=== PATIENT | female | born 1965 | race Caucasian/White ===

== ENCOUNTER 2022-12-07 16:00 | Outpatient (CLI) | payer OTHER, SELFPAY ==
--- NOTE | ~2022-12-07 | MM_ITS ---
EXAMINATION: MM screening ronaldo BI w yanique HISTORY: Screening mammogram TECHNIQUE: Craniocaudal and mediolateral oblique 3-D tomosynthesis images were obtained and synthetic 2-D images were generated. CAD analysis was submitted and interpreted. COMPARISON: 10/11/2018, 12/09/2015 bilateral screening mammogram examinations........ BREAST PARENCHYMAL COMPOSITION: There are scattered areas of fibroglandular density. FINDINGS: There is no evidence of suspicious mass, calcification, or architectural distortion to sugg est malignancy in either breast. There has been no suspicious interval change. IMPRESSION: 1. No mammographic evidence of malignancy. 2. Recommend routine screening mammography in one year. BI-RADS Category 1: Negative Reviewed, dictated and finalized at location A.
== END 2022-12-07 16:01 | disposition home or self-care (01) ==
LOC: ANHIMG 16:02
PROVIDERS: PCP Family Medicine; Visit Provider Emergency Medicine
DX: Z12.31 Encounter for screening mammogram for malignant neoplasm of breast (principal)
CPT/HCPCS: 77063; 77067

== ENCOUNTER 2023-03-09 08:29 | Outpatient (CLI) | payer OTHER, SELFPAY ==
--- NOTE | 2023-03-20 14:29 | WPDHOMESLEEP ---
Sleep Study - Home Unattended Date of Study: 03/09/23 Ordering Provider: Naty Stone MD Interpreting Provider: Tess eNlson, DO Home Sleep Study Type: Watch PAT Height: 1.73 m Weight: 104.326 kg Body Mass Index: 34.9 Neck Circumference (inches): 14.5 [place]: 5 Reason for Sleep Study Unrefreshing sleep Sleep History The patient is a 57-year-old female with depression, OCD, arthritis, GERD, anxiety, hypothyroidism and history of tobacco use that had a sleep study ordered by her primary care for evaluation of sleep apnea. The patient denies awakening from sleep short of breath. She frequently awakens at night with heartburn, belching or cough. She frequently snores and is occasionally loud enough that others complain. She occasionally has trouble sleeping when she has a cold. She denies waking up gasping for air throughout the night. She denies having breathing problems at night observed by herself or others. She rarely sweats excessively at night. She rarely has heart palpitations or irregular heartbeats during the night. She rarely falls asleep during the day but never while driving. She denies sleep paralysis and cataplexy. She rarely has trouble at school or work due to sleepiness. She rarely experiences vivid dreamlike scenes upon awakening or falling asleep. She denies feeling afraid of going to sleep. She rarely has nightmares. She rarely remembers her dreams. She frequently has thoughts racing through her mind. She rarely feels sad or depressed. She frequently has anxiety. She frequently has muscular tension. She occasionally notices parts of her body jerk. She frequently kicks during the night. She occasionally has crawling and aching feelings in her legs but never has leg pain during the night. She frequently grinds her teeth during sleep but never awakens with morning jaw pain. She is rarely bothered by pain during the day and rarely awakened by pain during the night. She frequently wakes up feeling stiff in the morning. She frequently wakes up with sore or achy muscles. She frequently wakes up with pain in the neck, spine or other joints. She goes to bed between 9-10 p.m. on weekdays and between 10-11 p.m. on the weekends. She can fall asleep immediately. She wakes up 2-3 times throughout the night for unknown reasons. When she awakens, she will have racing thoughts if she is unable to fall back asleep but she can usually fall back asleep within a few minutes. She wakes up at 6:00 a.m. on weekdays and at 7:00 a.m. on the weekends. She typically gets 8-9 hours of sleep per night. She will stay in bed for 30 minutes after waking up in the morning. She denies consuming any caffeinated beverages within 2 hours of bedtime. She denies engaging in physical exercise before bedtime. She will read watch television before falling asleep. She will occasionally take naps in the afternoon or the evening. She will drink coffee in the morning. She will occasionally consume alcoholic beverages. She quit smoking cigarettes 16 years ago. She denies recreational drug use. [facility] Past Medical History Medical History Abnormal findings on esophagogastroduodenoscopy (EGD) 6.6.19: esophageal web, reflux esophagitis,dilated Chronic pain of right knee History of deviated nasal septum History of torn meniscus of left knee Loss of libido Low back pain radiating to lower extremity Major depressive disorder, recurrent episode, mild with anxious 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 Primary osteoarthritis, unspecified hand Right knee DJD Surgical History Surgical History History of endometrial ablation Hx of cholecystectomy Hx of knee surgery Family History Family History Mother Depression Family history of obesity Family hist
[2023-03-20 14:37] VITALS: BMI 34.9
== END 2023-03-10 08:49 | disposition home or self-care (01) ==
LOC: ANHCSM 08:30
PROVIDERS: PCP Family Medicine; Visit Provider Family Medicine
DX: G47.33 Obstructive sleep apnea (adult) (pediatric) (principal)
CPT/HCPCS: 95800

== ENCOUNTER 2023-10-16 01:46 | Day surgery (SDC) | payer OTHER, SELFPAY ==
[2023-09-29 11:50] VITALS: BMI 35.9
--- NOTE | 2023-10-13 09:56 | SUR.PREOP ---
Patient called regarding upcoming procedure. Reviewed preop instructions, appointment times, and procedure prep.
[2023-10-16 09:36] VITALS: BP 161/90; PULSE 70; RESP 20; TEMP 36.2; O2SAT 98; BMI 37.0
[2023-10-16] MEDS: LACTATED RINGERS 1,000 ML 150 ML IV CONT (09:45)
--- NOTE | 2023-10-16 10:18 | WPDANESEPPF ---
Anes - Initial Pre Proc Eval Procedure: Operation Date: 10/16/23 10:30 Proposed Procedures p Esophagogastroduodenoscopy - Marques Beach MD Date/Time: 10/16/23 10:18 Surgeon: Marques Beach MD Pre Op Diagnosis: GERD,Dysphagia,(gaseous) Patient Data Age: 57 Gender: F Height: 1.73 m Weight: 110.6 kg Last Vital Signs Temp 97.1 F L 10/16/23 09:36 Pulse 70 10/16/23 09:36 Resp 20 10/16/23 09:36 BP 161/90 H 10/16/23 09:36 Pulse Ox 98 10/16/23 09:36 O2 Del Method Room Air 10/16/23 09:36 Allergies Allergy/AdvReac Type Severity Reaction Status Date / Time Tetanus Vaccines and Toxoid Allergy Intermediate local Verified 09/29/23 11:52 reaction buproprion Allergy Intermediate manic Uncoded 09/29/23 11:52 lexapro AdvReac Intermediate detached Uncoded 09/29/23 11:52 Home Medications Medication Instructions Recorded Confirmed Type cyclobenzaprine 5 mg tablet 5 mg PO TID PRN muscle spasm #30 11/17/22 09/29/23 Rx tabs levothyroxine 50 mcg tablet See Rx Instructions .Route 01/02/23 09/29/23 Rx .COMPLEX #90 tabs meloxicam 15 mg tablet See Rx Instructions .Route 02/07/23 09/29/23 Rx .COMPLEX #90 tabs cpap #1 ea 03/20/23 09/15/23 Rx fluoxetine 10 mg capsule 20 mg PO DAILY #180 caps 04/11/23 09/29/23 Rx omeprazole 40 mg capsule,delayed 40 mg PO DAILY #30 caps 08/21/23 09/29/23 Rx release sucralfate 1 gram tablet 1 g PO BID PRN gastric reflux #20 08/21/23 09/29/23 Rx tabs One Daily Women's 1 cap PO DAILY 09/29/23 09/29/23 History alprazolam 0.25 mg tablet 0.25 mg PO DAILY PRN Anxiety 09/29/23 09/29/23 History cholecalciferol (vitamin D3) 50 150 mcg PO DAILY 09/29/23 09/29/23 History mcg (2,000 unit) capsule (Vitamin D3) omega-3 fatty acids 1 cap PO DAILY 09/29/23 09/29/23 History Patient hx anesthesia problems: none Family hx anesthesia problems: none Results Review: All pre-operative results and documents have been reviewed as part of the pre-operative evaluation. [facility] Past Medical History Medical History (Updated 09/15/23 @ 11:00 by Lottie Stewart, MIGUEL) Abnormal findings on esophagogastroduodenoscopy (EGD) 6.6.19: esophageal web, reflux esophagitis,dilated Bloating Chronic pain of right knee Dysphagia Esophageal ring History of deviated nasal septum History of torn meniscus of left knee Hyperplastic colon polyp Lactose intolerance Loss of libido Low back pain radiating to lower extremity Major depressive disorder, recurrent episode, mild with anxious 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 Primary osteoarthritis, unspecified hand Right knee DJD Surgical History Surgical History History of endometrial ablation Hx of cholecystectomy Hx of knee surgery Family History Family History Mother Depression Family history of obesity Family history of kidney disease Father Hypertension Acute myocardial infarction Family history of glaucoma Family history of elevated blood lipids Family history of cardiovascular disease Grandparent Diabetes mellitus Family history of obesity Family history of schizophrenia Depression Family history of polycystic kidney disease Social History Social History Smoking packs per day: 1 Smoking cigarettes per day: 20.0 Years smoked: 18 Smoking pack-years: 18.00 Smoking status: Former smoker Tobacco type: cigarettes Alcohol intake: current Substance use: never Substance use type: does not use Lack of Transportation: No Lack of Food: Never True Current Housing: I Have Housing Concerned About Future Housing: No Difficulty Paying Gas/Electric Bills: No Difficulty Paying for Meds: No Currently Unemployed: No Education: Associate Degree Difficulty w/ Childcare or Family Care: N
--- NOTE | 2023-10-16 10:22 | WPDHPUPDATE1 ---
History and Physical Update Update Date/Time: 10/16/23 10:22 History and Physical has been reviewed, including an updated exam of the patient. There are NO changes in the patient's condition. Risks, benefits, and alternatives have been discussed and questions answered. Patient agrees to proceed with procedure.
[2023-10-16 10:41] VITALS: BP 135/80; PULSE 67; RESP 12; O2SAT 98
[2023-10-16 10:51] VITALS: BP 146/77; PULSE 65; RESP 17; O2SAT 98
[2023-10-16 11:01] VITALS: BP 127/77; PULSE 62; RESP 16; O2SAT 98
== END 2023-10-16 11:04 | disposition home or self-care (01) ==
PROVIDERS: PCP Family Medicine; Visit Provider Internal Medicine Gastroenterology
PROC: 0DJ08ZZ Inspection of Upper Intestinal Tract, Via Natural or Artificial Opening Endoscopic (ICD-10-PCS; CPT 43235; principal; 2023-10-16 10:30)
DX: K21.00 Gastro-esophageal reflux disease with esophagitis, without bleeding (principal); K29.50 Unspecified chronic gastritis without bleeding; K44.9 Diaphragmatic hernia without obstruction or gangrene; F41.9 Anxiety disorder, unspecified; E03.9 Hypothyroidism, unspecified; F33.0 Major depressive disorder, recurrent, mild; G47.30 Sleep apnea, unspecified; G89.29 Other chronic pain; M25.561 Pain in right knee; E66.9 Obesity, unspecified; Z68.37 Body mass index [BMI] 37.0-37.9, adult; Z90.49 Acquired absence of other specified parts of digestive tract; Z98.890 Other specified postprocedural states; Z87.891 Personal history of nicotine dependence; Z82.49 Family history of ischemic heart disease and other diseases of the circulatory system
CPT/HCPCS: 43239; 88305; J2704; J7120

== ENCOUNTER 2024-02-04 18:03 | Emergency (ER) | payer OTHER, SELFPAY ==
[2024-02-04 18:31] VITALS: BP 145/76; PULSE 89; RESP 16; TEMP 36.3; O2SAT 97
[2024-02-04] MEDS: LIDOCAINE HCL 1% LOCAL INJ 2 ML AMPUL 5 ML INFILTRATE (18:55)
--- NOTE | 2024-02-04 19:41 | ED.ANIMALBIT ---
HPI - Animal Bite General Chief Complaint: Animal Bite Stated Complaint: lt hand laceration Source: patient Mode of arrival: ambulatory Limitations: no limitations History of Present Illness HPI narrative: Patient presents for evaluation of a dog bite to the 3rd digit of the left hand. She indicates she was at an ice cream shop and an individual's dog bit her when she placed her hands down to greet it. The dog looked healthy. It is unknown whether the dog is up-to-date on vaccinations. Patient's last tetanus was in 2008. She is not diabetic. She is right-hand dominant. She reports 2/10 pain in the 3rd digit left hand at the site of the dog bite. She denies any fever, chills, nausea, vomiting, purulence from the affected area, sensory changes, loss of motor function. Related Data Home Medications Medication Instructions Recorded Confirmed One Daily Women's 1 cap PO DAILY 09/29/23 02/04/24 alprazolam 0.25 mg tablet 0.25 mg PO DAILY PRN Anxiety 09/29/23 02/04/24 cholecalciferol (vitamin D3) 50 150 mcg PO DAILY 09/29/23 02/04/24 mcg (2,000 unit) capsule (Vitamin D3) omega-3 fatty acids 1 cap PO DAILY 09/29/23 02/04/24 Allergies Allergy/AdvReac Type Severity Reaction Status Date / Time Tetanus Vaccines and Toxoid Allergy Intermediate local Verified 02/04/24 18:13 reaction buproprion Allergy Intermediate manic Uncoded 02/04/24 18:13 lexapro AdvReac Intermediate detached Uncoded 02/04/24 18:13 Review of Systems Review of Systems: CONSTITUTIONAL: Denies fever, chills, or sweats. EYES: Denies visual changes, redness, or discharge. ENT: Denies rhinorrhea, congestion, sore throat, or otalgia. CARDIOVASCULAR: Denies chest pain, palpitations, or edema. RESPIRATORY: Denies cough or dyspnea. GASTROINTESTINAL: Denies abdominal pain, nausea, vomiting, or diarrhea. GENITOURINARY: Denies dysuria or hematuria. SKIN: Reports dog bite to 3rd digit of left hand MUSCULOSKELETAL: Reports pain in the third digit of the left hand NEUROLOGIC: Denies headache, numbness, dizziness, or weakness. PSYCHIATRIC: Denies anxiety or depression. [facility] Past Medical History Medical History Abnormal findings on esophagogastroduodenoscopy (EGD) 02.28.19: esophageal web, reflux esophagitis,dilated Bloating Chronic pain of right knee Dysphagia Esophageal ring History of deviated nasal septum History of torn meniscus of left knee Hyperplastic colon polyp Lactose intolerance Loss of libido Low back pain radiating to lower extremity Major depressive disorder, recurrent episode, mild with anxious 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 Primary osteoarthritis, unspecified hand Right knee DJD Surgical History Surgical History History of endometrial ablation Hx of cholecystectomy Hx of knee surgery Family History Family History Mother Depression Family history of obesity Family history of kidney disease Father Hypertension Acute myocardial infarction Family history of glaucoma Family history of elevated blood lipids Family history of cardiovascular disease Grandparent Diabetes mellitus Family history of obesity Family history of schizophrenia Depression Family history of polycystic kidney disease Social History Social History Smoking packs per day: 1 Smoking cigarettes per day: 20.0 Years smoked: 18 Smoking pack-years: 18.00 Smoking status: Former smoker Tobacco type: cigarettes Alcohol intake: current Substance use: never Substance use type: does not use Lack of Transportation: No Lack of Food: Never True Current Housing: I Have Housing Concerned About Future Housing: No Difficulty Paying Gas/Electric Bills: No Difficulty Paying for Meds
[2024-02-04] MEDS: TETANUS,DIPHTHERIA,AC PERTUSSIS ADULT (0.5 ML) BOOSTRIX IM (19:44)
== END 2024-02-04 19:58 | disposition home or self-care (01) ==
PROVIDERS: Emergency Provider Nurse Practitioner; PCP Family Medicine
DX: S61.213A Laceration without foreign body of left middle finger without damage to nail, initial encounter (principal); W54.0XXA Bitten by dog, initial encounter; Z23 Encounter for immunization; Z87.891 Personal history of nicotine dependence; M17.11 Unilateral primary osteoarthritis, right knee
CPT/HCPCS: 12042; 90471; 90715; 99213; G0463

== ENCOUNTER 2024-03-27 05:54 | Day surgery (SDC) | payer OTHER, SELFPAY ==
[2024-02-23 13:31] VITALS: BMI 36.8
[2024-03-27 06:29] VITALS: BP 136/92; PULSE 80; RESP 16; TEMP 36.8; O2SAT 97
[2024-03-27] MEDS: LACTATED RINGERS 1,000 ML 150 ML IV CONT (06:31)
--- NOTE | 2024-03-27 07:06 | WPDANESEPPF ---
Anes - Initial Pre Proc Eval Procedure: Operation Date: 03/27/24 08:00 Proposed Procedures p Diagnostic Colonoscopy - Armando Rhodes MD Date/Time: 03/27/24 07:06 Surgeon: Armando Rhodes MD Pre Op Diagnosis: History of Colon Polyps Patient Data Age: 58 Gender: F Height: 1.73 m Weight: 107.7 kg Last Vital Signs Temp 36.8 C 03/27/24 06:29 Pulse 80 03/27/24 06:29 Resp 16 03/27/24 06:29 BP 136/92 H 03/27/24 06:29 Pulse Ox 97 03/27/24 06:29 O2 Del Method Room Air 03/27/24 06:29 Allergies Allergy/AdvReac Type Severity Reaction Status Date / Time bupropion Allergy Intermediate Rash Verified 03/27/24 06:27 Tetanus Vaccines and Toxoid Allergy Intermediate local Verified 03/27/24 06:27 reaction escitalopram [From Lexapro] AdvReac Intermediate Other Verified 03/27/24 06:27 Home Medications Medication Instructions Recorded Confirmed Type cyclobenzaprine 5 mg tablet 5 mg PO TID PRN muscle spasm #30 11/17/22 03/27/24 Rx tabs cpap #1 ea 03/20/23 03/15/24 Rx fluoxetine 10 mg capsule 20 mg PO DAILY #180 caps 04/11/23 03/27/24 Rx sucralfate 1 gram tablet 1 g PO BID PRN gastric reflux #20 08/21/23 03/27/24 Rx tabs One Daily Women's 1 cap PO DAILY 09/29/23 03/27/24 History alprazolam 0.25 mg tablet 0.25 mg PO DAILY PRN Anxiety 09/29/23 03/27/24 History cholecalciferol (vitamin D3) 50 150 mcg PO DAILY 09/29/23 03/27/24 History mcg (2,000 unit) capsule (Vitamin D3) omega-3 fatty acids 1 cap PO DAILY 09/29/23 03/27/24 History phentermine 37.5 mg tablet 37.5 mg PO DAILY #30 tabs 02/21/24 03/27/24 Rx omeprazole 40 mg capsule,delayed 40 mg PO DAILY #30 caps 02/26/24 03/27/24 Rx release levothyroxine 50 mcg tablet 50 mcg PO DAILY 03/27/24 03/27/24 History meloxicam 15 mg tablet 15 mg PO DAILY 03/27/24 03/27/24 History Patient hx anesthesia problems: none Family hx anesthesia problems: none Results Review: All pre-operative results and documents have been reviewed as part of the pre-operative evaluation. [facility] Past Medical History Medical History Abnormal findings on esophagogastroduodenoscopy (EGD) 6.6.19: esophageal web, reflux esophagitis,dilated Chronic pain of right knee Dysphagia Esophageal ring Gastritis History of deviated nasal septum History of torn meniscus of left knee Hyperplastic colon polyp Lactose intolerance Loss of libido Low back pain radiating to lower extremity Major depressive disorder, recurrent episode, mild with anxious 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 Primary osteoarthritis, unspecified hand Right knee DJD Surgical History Surgical History History of endometrial ablation Hx of cholecystectomy Hx of knee surgery Family History Family History Mother Depression Family history of obesity Family history of kidney disease Father Hypertension Acute myocardial infarction Family history of glaucoma Family history of elevated blood lipids Family history of cardiovascular disease Grandparent Diabetes mellitus Family history of obesity Family history of schizophrenia Depression Family history of polycystic kidney disease Social History Social History Smoking packs per day: 1 Smoking cigarettes per day: 20.0 Years smoked: 18 Smoking pack-years: 18.00 Smoking status: Former smoker Tobacco type: cigarettes Smoking end date: 02/08/07 Alcohol intake: current Drinks per week: 4 Alcohol use details: occasionally Substance use: current Substance use type: does not use Other substance usage details: gummies Last use: months ago Do You Feel Safe in your Home?: Yes Lack of Transportation: No Lack of Food: Never True Current Housing: I Have Housing Concerned About Future Hous
--- NOTE | 2024-03-27 07:16 | PM.HPGS ---
History of Present Illness History of Present Illness Consent: Risks, benefits, and alternatives have been discussed and questions answered. Patient agrees to proceed with procedure. Chief complaint: History of Colon Polyps Narrative: Jeannie Her is a 58 year old female presents for screening colonoscopy. Patient's current weight appetite and bowel movements are normal. Patient denies abdominal pain. She has had no bleeding. Family history noncontributory. Previous colonoscopy in 2019 revealed a benign hyperplastic polyp. This was not felt to have cancer risk. Review of Systems Review of Systems: All systems reviewed & are unremarkable except as noted in HPI and below PMFSH Past Medical History Medical History Abnormal findings on esophagogastroduodenoscopy (EGD) 6..19: esophageal web, reflux esophagitis,dilated Chronic pain of right knee Dysphagia Esophageal ring Gastritis History of deviated nasal septum History of torn meniscus of left knee Hyperplastic colon polyp Lactose intolerance Loss of libido Low back pain radiating to lower extremity Major depressive disorder, recurrent episode, mild with anxious 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 Primary osteoarthritis, unspecified hand Right knee DJD Surgical History Surgical History History of endometrial ablation Hx of cholecystectomy Hx of knee surgery Family History Family History Mother Depression Family history of obesity Family history of kidney disease Father Hypertension Acute myocardial infarction Family history of glaucoma Family history of elevated blood lipids Family history of cardiovascular disease Grandparent Diabetes mellitus Family history of obesity Family history of schizophrenia Depression Family history of polycystic kidney disease Social History Social History Smoking packs per day: 1 Smoking cigarettes per day: 20.0 Years smoked: 18 Smoking pack-years: 18.00 Smoking status: Former smoker Tobacco type: cigarettes Smoking end date: 02/08/07 Alcohol intake: current Drinks per week: 4 Alcohol use details: occasionally Substance use: current Substance use type: does not use Other substance usage details: gummies Last use: months ago Do You Feel Safe in your Home?: Yes Lack of Transportation: No Lack of Food: Never True Current Housing: I Have Housing Concerned About Future Housing: No Difficulty Paying Gas/Electric Bills: No Difficulty Paying for Meds: No Currently Unemployed: No Education: Associate Degree Difficulty w/ Childcare or Family Care: No Living arrangements: with family Spiritual care concerns: No Meds Home Medications and Allergies Home Medications Medication Instructions Recorded Confirmed Type cyclobenzaprine 5 mg tablet 5 mg PO TID PRN muscle spasm #30 11/17/22 03/27/24 Rx tabs cpap #1 ea 03/20/23 03/15/24 Rx fluoxetine 10 mg capsule 20 mg PO DAILY #180 caps 04/11/23 03/27/24 Rx sucralfate 1 gram tablet 1 g PO BID PRN gastric reflux #20 08/21/23 03/27/24 Rx tabs One Daily Women's 1 cap PO DAILY 09/29/23 03/27/24 History alprazolam 0.25 mg tablet 0.25 mg PO DAILY PRN Anxiety 09/29/23 03/27/24 History cholecalciferol (vitamin D3) 50 150 mcg PO DAILY 09/29/23 03/27/24 History mcg (2,000 unit) capsule (Vitamin D3) omega-3 fatty acids 1 cap PO DAILY 09/29/23 03/27/24 History phentermine 37.5 mg tablet 37.5 mg PO DAILY #30 tabs 02/21/24 03/27/24 Rx omeprazole 40 mg capsule,delayed 40 mg PO DAILY #30 caps 02/26/24 03/27/24 Rx release levothyroxine 50 mcg tablet 50 mcg PO DAILY 03/27/24 03/27/24 History meloxicam 15 mg tablet 15 mg PO DAILY 03/27/24 03/27/24 History Allergies Allergy/AdvReac Type Se
[2024-03-27 08:16] VITALS: BP 112/73; PULSE 67; RESP 18; O2SAT 97
[2024-03-27 08:25] VITALS: BP 115/70; PULSE 67; RESP 18; O2SAT 97
[2024-03-27 08:35] VITALS: BP 118/79; PULSE 68; RESP 18; O2SAT 98
--- NOTE | 2024-03-27 08:44 | WPDANESPN ---
Anes - Prog Note Post-Op Date/Time: 03/27/24 08:44 Cardiovascular status: normal Respiratory status: normal Airway patency: baseline Mental status: baseline Post-Op hydration status: normal Vital Signs: Last Vital Signs Temp 36.8 C 03/27/24 06:29 Pulse 67 03/27/24 08:24 Resp 18 03/27/24 08:24 BP 115/70 03/27/24 08:24 Pulse Ox 97 03/27/24 08:24 O2 Del Method Room Air 03/27/24 08:24 Pain Score (VAS): 0/10 I/O: Intake & Output 03/26/24 03/27/24 03/27/24 23:59 07:59 15:59 Intake Total 1000 Balance 1000 Patient Feedback: Patient satisfied with anesthetic care.
== END 2024-03-27 08:45 | disposition home or self-care (01) ==
PROVIDERS: PCP Family Medicine; Visit Provider Internal Medicine Gastroenterology
PROC: 0DJD8ZZ Inspection of Lower Intestinal Tract, Via Natural or Artificial Opening Endoscopic (ICD-10-PCS; CPT 45378; principal; 2024-03-27 08:00)
DX: Z12.11 Encounter for screening for malignant neoplasm of colon (principal)
CPT/HCPCS: 45378

== ENCOUNTER 2024-07-27 12:47 | Emergency (ER) | payer OTHER, SELFPAY ==
--- NOTE | ~2024-07-27 | XR_ITS ---
EXAMINATION: XR chest 2V DATE: 07/27/2024 13:18 INDICATION: Cough TECHNIQUE: PA and lateral views of the chest were obtained. COMPARISON: CT dated 07/15/2004 FINDINGS: The lungs are clear with no focal airspace opacities, pulmonary edema, pleural effusion or pneumothor ax. The cardiomediastinal silhouette is normal. Upper thoracic spondylosis. Cholecystectomy clips in right upper quadrant. IMPRESSION: 1. No acute cardiopulmonary disease. Reviewed, dictated and finalized at location A.
[2024-07-27 13:00] VITALS: BP 149/93; PULSE 84; RESP 16; TEMP 36.3; O2SAT 98
--- NOTE | 2024-07-27 13:09 | ED_ITS ---
HPI - General Adult General Chief complaint: Upper Respiratory Infection Stated complaint: chest/head congestion Source: patient Mode of arrival: ambulatory Limitations: no limitations History of Present Illness HPI narrative: Pt presents for evaluation of respiratory symptoms for the past ten days. She reports productive cough of green sputum and wheezing. She initially had a fever but that has resolved. Denies nausea, vomiting or diarrhea. She went to an urgent care at the time of symptom onset and had negative COVID and flu tests. She was given an inhaler, tessalon and zofran. Her symptoms did not i mprove. She saw her primary care provider five days ago and was given augmentin, guaifenesin with codeine, and prednisone. Her symptoms improved for two days but she had recurrence of her symptoms thereafter. She reports fatigue in additional to her respiratory symptoms. She does not smoke. Related Data Home Medications Medication Instructions Recorded Confirmed One Daily Women's 1 cap PO DAILY 09/29/23 07/27/24 cholecalciferol (vitamin D3) 50 150 mcg PO DAILY 09/29/23 07/27/24 mcg (2,000 unit) capsule (Vitamin D3) omega-3 fatty acids 1 cap PO DAILY 09/29/23 07/27/24 Allergies Allergy/AdvReac Type Severity Reaction Status Date / Time bupropion Allergy Intermediate Rash Verified 07/27/24 12:56 Tetanus Vaccines and Toxoid Allergy Intermediate local Verified 07/27/24 12:56 reaction escitalopram [From Lexapro] AdvReac Intermediate Other Verified 07/27/24 12:56 Review of Systems Review of Systems: CONSTITUTIONAL: Reports fatigue. Denies fever, chills, or sweats. EYES: Denies visual changes, redness, or discharge. ENT: Denies rhinorrhea, congestion, sore throat, or otalgia. CARDIOVASCULAR: Denies chest pain, palpitations, or edema. RESPIRATORY: Reports cough and wheezing GASTROINTESTINAL: Denies abdominal pain, nausea, vomiting, or diarrhea. GENITOURINARY: Denies dysuria or hematuria. SKIN: Denies rash or itching. MUSCULOSKELETAL: Denies back pain, joint pain, or myalgia. NEUROLOGIC: Denies headache, numbness, dizziness, or weakness. PSYCHIATRIC: Denies anxiety or depression. [facility] Past Medical History Medical History Abnormal findings on esophagogastroduodenoscopy (EGD) 6..19: esophageal web, reflux esophagitis,dilated Chronic pain of right knee Dysphagia Esophageal ring Gastritis History of deviated nasal septum History of torn meniscus of left knee Hyperplastic colon polyp Lactose intolerance Loss of libido Low back pain radiating to lower extremity Major depressive disorder, recurrent episode, mild with anxious 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 Primary osteoarthritis, unspecified hand Right knee DJD Surgical History Surgical History History of endometrial ablation Hx of cholecystectomy Hx of knee surgery Family History Family History Mother Depression Family history of obesity Family history of kidney disease Father Hypertension Acute myocardial infarction Family history of glaucoma Family history of elevated blood lipids Family history of cardiovascular disease Grandparent Diabetes mellitus Family history of obesity Family history of schizophrenia Depression Family history of polycystic kidney disease Social History Social History Smoking packs per day: 1 Smoking cigarettes per day: 20.0 Years smoked: 18 Smoking pack-years: 18.00 Smoking status: Former smoker Tobacco type: cigarettes Smoking end date: 02/08/07 Alcohol intake: current Drinks per week: 4 Alcohol use details: occasionally Substance use: current Substance use type: does not use Other substance usage details: gummies Last use: months ago Do You Feel Safe in your Home?: Yes Lack of Transportation: No Lack of Food: Never True Current Housing: I Have Housing Concerned About Future Housing: No Difficulty Paying Gas/Electric Bills: No Difficulty Paying for Meds: No Currently Unemployed: No Education: Associate Degree Difficulty w/ Childcare or Family Care: No Living arrangements: with family Spiritual care concerns: No Exam Narrative: GENERAL: Well-appearing, well-nourished, and in no acute distress. HEAD: Normocephalic, atraumatic. EYES: PERRLA and EOMI. ENT: Nares clear, no rhinorrhea or epistaxis. Mucous membranes moist. Oropharynx without tonsillar hypertrophy exudate or other lesions. Bilateral TMs pearly valdez nonbulging NECK: Supple. No adenopathy or masses. No carotid bruits or JVD CHEST: Clear to auscultation. No respiratory distress. No wheezes rales or rhonchi HEART: Regular rate and rhythm. No murmur heard. Normal peripheral pulses. ABDOMEN: Soft, nontender, nondistended, normal active bowel sounds. EXTREMITIES: Normal range of motion. No edema. SKIN: Warm, dry, no rash. NEURO: No focal deficits. Alert and oriented x3. PSYCH: Normal mood and affect. Course Course Emergency Course: This is a 58 year old female who presented for evaluation of respiratory symptoms. She is initially treated for viral infection without improvement. She is our primary care provider earlier this week and was given Augmentin. Discussed testing for mono which was negative and getting a chest x-ray. Although there is not pneumonia noted on the chest x-ray, she is currently on augmentin so it could be resolving. We also discussed that it is possible that there may not be evidence of pneumonia but sometimes is seen on CT imaging. We agreed to add azithromycin for pneumonia coverage due to persistent nature of her symptoms and rebound which is sometimes seen with bacterial infections. She should follow up with her primary care provider and go to the emergency department for worsening symptoms. Patient in agreement plan of care. Level of Care: Express Care Visit Vital Signs Vital signs: Vital Signs Temperature 36.3 C L 07/27/24 13:00 Pulse Rate 84 07/27/24 13:00 Respiratory Rate 16 07/27/24 13:00 Blood Pressure 149/93 H 07/27/24 13:00 Pulse Oximetry 98 07/27/24 13:00 Oxygen Delivery Room Air 07/27/24 13:00 Temperature 36.3 C L 07/27/24 13:00 Pulse Rate 84 07/27/24 13:00 Respiratory Rate 16 07/27/24 13:00 Blood Pressure 149/93 H 07/27/24 13:00 Pulse Oximetry 98 07/27/24 13:00 Oxygen Delivery Room Air 07/27/24 13:00 Medical Decision Making Vital Signs Vital Signs: Vital Signs Temperature 36.3 C L 07/27/24 13:00 Pulse Rate 84 07/27/24 13:00 Respiratory Rate 16 07/27/24 13:00 Blood Pressure 149/93 H 07/27/24 13:00 Pulse Oximetry 98 07/27/24 13:00 Oxygen Delivery Room Air 07/27/24 13:00 Temperature 36.3 C L 07/27/24 13:00 Pulse Rate 84 07/27/24 13:00 Respiratory Rate 16 07/27/24 13:00 Blood Pressure 149/93 H 07/27/24 13:00 Pulse Oximetry 98 07/27/24 13:00 Oxygen Delivery Room Air 07/27/24 13:00 Lab Data Labs: Lab Results 07/27/24 Range/Units 13:25 POC Monoscreen Negative (Negative) Imaging Data Radiologist's impression: EXAMINATION: XR chest 2V DATE: 07/27/2024 13:18 INDICATION: Cough TECHNIQUE: PA and lateral views of the chest were obtained. COMPARISON: CT dated 07/15/2004 FINDINGS: The lungs are clear with no focal airspace opacities, pulmonary edema, pleural effusion or pneumothorax. The cardiomediastinal silhouette is normal. Upper thoracic spondylosis. Cholecystectomy clips in right upper quadrant. IMPRESSION: 1. No acute cardiopulmonary disease. Discharge Plan Discharge Clinical Impression: Community acquired pneumonia Patient Disposition: Home, Self-Care Condition: Stable Instructions: Antibiotic Form, Community Acquired Pneumonia (DC) Additional Instructions: PLEASE COMPLETE YOUR AUGMENTIN AND PREDNISONE WE WILL ADD AZITHROMYCIN FOR SUSPECTED PNEUMONIA PLEASE FOLLOW UP WITH YOUR PRIMARY CARE PROVIDER NEXT WEEK IF YOU HAVE WORSENING SYMPTOMS OR SHORTNESS OF BREATH, PLEASE GO TO THE ER Patient Language: Yemeni Prescriptions: New azithromycin 250 mg tablet See Rx Instructions .ROUTE .COMPLEX Qty: 6 0RF Rx Instructions: For 250 mg dose pack: take 500 mg today (day 1), then 250 mg for 4 days (days 2-5) No Action prednisone 50 mg tablet 50 mg PO DAILY Qty: 7 0RF amoxicillin-pot clavulanate 875-125 mg tablet 1 tablet PO BID Qty: 20 0RF codeine-guaifenesin 10-100 mg/5 mL liquid 5 ml PO Q6H PRN (Reason: cold symptoms) Qty: 120 0RF Fish Oil Capsule 1 cap PO DAILY cholecalciferol (vitamin D3) [Vitamin D3] 50 mcg (2,000 unit) Capsule 150 mcg PO DAILY One Daily Women's 1 cap PO DAILY (DME) cpap See Rx Instructions .Route .MEDSUPPLY Qty: 1 1RF Rx Instructions: Resmed AirSense 11 AutoPAP 5-15 cm H2O, CPAP mask/filters/tubing and humidifier chamber. omeprazole 40 mg capsule,delayed release(DR/EC) 40 mg PO DAILY Qty: 30 5RF fluoxetine 10 mg capsule 20 mg PO DAILY Qty: 180 1RF Rx Instructions: DUE FOR APPOINTMENT IN JULY phentermine 37.5 mg tablet 37.5 mg PO DAILY Qty: 30 5RF Rx Instructions: must administer 30 minutes before or 1-2 hours after breakfast levothyroxine 50 mcg tablet 50 mcg PO DAILY Qty: 90 1RF Rx Instructions: TAKE 1 TABLET DAILY sucralfate 1 gram tablet 1 g PO BID PRN (Reason: gastric reflux) Qty: 20 0RF Rx Instructions: NEEDS APPOINTMENT FOR FURTHER REFILLS Follow-up/Referrals: Naty Stone MD [Primary Care Provider] - Time of Disposition: 13:45
[2024-07-27 13:28] LABS: EDMONONEGPOS Negative (Negative)
== END 2024-07-27 13:49 | disposition home or self-care (01) ==
PROVIDERS: Emergency Provider Nurse Practitioner; PCP Family Medicine
DX: J18.9 Pneumonia, unspecified organism (principal); Z87.891 Personal history of nicotine dependence; M17.11 Unilateral primary osteoarthritis, right knee
CPT/HCPCS: 36416; 71046; 86308; 99213; G0463

== ENCOUNTER 2024-09-27 08:10 | Emergency (ER) | payer OTHER, SELFPAY ==
[2024-09-27 08:24] VITALS: BP 144/88; PULSE 81; RESP 16; TEMP 35.9; O2SAT 99
--- NOTE | 2024-09-27 08:31 | ED_ITS ---
HPI - Eye Problem General Chief complaint: Eye Problems Stated complaint: Eyes Irritation Time Seen by Provider: 09/27/24 08:31 Source: patient, RN notes reviewed and old records reviewed Mode of arrival: ambulatory Limitations: no limitations History of Present Illness HPI Narrative: Patient presents with 1-2 weeks of sinus congestion. She reports that while bothersome, she was not treating the symptoms because she thought they would resolve. She became concerned yesterday when she began to have drainage and redness from the eyes. I symptoms began with right eye and is now bilateral. She reports this morning she had purulent nasal drainage and both eyes were matted shut. She does not were contact lenses. She denies any injury or trauma. She does not believe she has been running a fever. She does state that she tried allergy eyedrops last night and felt as though that made her eye symptoms worse. She denies significant cough, does complain of copious postnasal drainage Related Data Home Medications ?Medication ?Instructions ?Recorded ?Confirmed ?Last Taken ?Type One Daily Women's 1 cap PO DAILY 09/29/23 08/30/24 10/15/23 History cholecalciferol (vitamin D3) 50 150 mcg PO DAILY 09/29/23 08/30/24 10/15/23 History mcg (2,000 unit) capsule (Vitamin D3) omega-3 fatty acids 1 cap PO DAILY 09/29/23 08/30/24 10/15/23 History Allergies Allergy/AdvReac Type Severity Reaction Status Date / Time bupropion Allergy Intermediate Rash Verified 08/30/24 16:54 Tetanus Vaccines and Toxoid Allergy Intermediate local Verified 08/30/24 16:54 reaction escitalopram (From Lexapro) AdvReac Intermediate Other Verified 08/30/24 16:54 Review of Systems Review of Systems: All systems reviewed & are unremarkable except as noted in HPI and below Constitutional: Constitutional: Reports no additional constitutional complaints Eyes: Eyes: Reports as per HPI, Reports no additional eye complaints, Reports eye discharge and Reports irritation ENT: Reports system reviewed and no additional complaints, except as documented, Reports nasal congestion, Reports nasal discharge, Reports post nasal drip, Reports sinus pain and Reports sinus pressure Cardiovascular: Cardiovascular: Reports no additional cardiovascular compl aints Respiratory: Respiratory: Reports no additional respiratory complaints Gastrointestinal: Gastrointestinal: Reports no additional gastrointestinal complaints [facility] Past Medical History Medical History Gastritis Hyperplastic colon polyp Esophageal ring Lactose intolerance Dysphagia Abnormal findings on esophagogastroduodenoscopy (EGD) 6..19: esophageal web, reflux esophagitis,dilated Low back pain radiating to lower extremity Chronic pain of right knee Right knee DJD Loss of libido History of torn meniscus of left knee Major depressive disorder, recurrent episode, mild with anxious 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 Primary osteoarthritis, unspecified hand History of deviated nasal septum Surgical History Surgical History Hx of knee surgery Hx of cholecystectomy History of endometrial ablation Family History Family History Mother Depression Family history of obesity Family history of kidney disease Father Hypertension Acute myocardial infarction Family history of glaucoma Family history of elevated blood lipids Family history of cardiovascular disease Grandparent Diabetes mellitus Family history of obesity Family history of schizophrenia Depression Family history of polycystic kidney disease Social History Social History Smoking packs per day: 1 Smoking cigarettes per day: 20.0 Years smoked: 18 Smoking pack-years: 18.00 Smoking status: Former smoker Tobacco type: cigarettes Smoking end date: 02/08/07 Alcohol intake: current Drinks per week: 4 Alcohol use details: occasionally Substance use: current Substance use type: does not use Other substance usage details: gummies Last use: months ago Do You Feel Safe in your Home?: Yes Lack of Transportation: No Lack of Food: Never True Current Housing: I Have Housing Concerned About Future Housing: No Difficulty Paying Gas/Electric Bills: No Difficulty Paying for Meds: No Currently Unemployed: No Education: Associate Degree Difficulty w/ Childcare or Family Care: No Living arrangements: with family Spiritual care concerns: No Comments At the time of my signature, I reviewed and agree with the nursing past medical, surgical, social, and family history. There is no relevant family history pertinent to the patient complaint. Exam Const: General: cooperative, no acute distress, alert and awake Orientation/consciousness: oriented to person, oriented to place and oriented to time HENMT: Head: normal to inspection Ears: TM abnormal dull bilateral Face and sinus: sinus tenderness ethmoid Resp: Effort & Inspection: normal respiratory effort and able to speak in complete sentences Auscultation: clear to auscultation bilaterally, no crackles, no rales, no rhonchi and no wheezes Cardio: Palpation: normal PMI Rate: regular rate Rhythm: regular rhythm Heart sounds: S1 normal heart sound present and S2 normal heart sound present Neuro: General: oriented to person, oriented to place and oriented to time Cranial nerves: Yes CN's II-XII intact bilaterally Psych: Appearance: grossly normal Thought process: Normal thought process present Insight: Good insight present (Psych) Judgement: Good judgement present (Psych) Course Course Level of Care: Express Care Visit Vital Signs Vital signs: Vital Signs Temperature 96.7 F L 09/27/24 08:24 Pulse Rate 81 09/27/24 08:24 Respiratory Rate 16 09/27/24 08:24 Blood Pressure 144/88 H 09/27/24 08:24 Pulse Oximetry 99 09/27/24 08:24 Oxygen Delivery Room Air 09/27/24 08:24 Temperature 96.7 F L 09/27/24 08:24 Pulse Rate 81 09/27/24 08:24 Respiratory Rate 16 09/27/24 08:24 Blood Pressure 144/88 H 09/27/24 08:24 Pulse Oximetry 99 09/27/24 08:24 Oxygen Delivery Room Air 09/27/24 08:24 Reviewed MDM - Eye Problem MDM Narrative Medical decision making narrative: Patient is nontoxic appearing and stable for discharge home on p.o. antibiotic therapy. Will treat for sinusitis. Given the extent of eye symptoms, will also cover with ophthalmic drops. Discharge instructions reviewed with patient, as well as provided in writing per nursing staff. The instructions also include specific and strict return/GO TO THE ER as well as f/u information. All questions have been answered, and the patient deny any further questions with discharge and discharge plan. Some parts of this dictation were generated by voice recognition software and may contain typographical and/or grammatical inaccuracies. Differential Diagnosis Differential diagnosis: Likely other (Sinusitis, conjunctivitis) Medical Records Attestation: I reviewed the patient's medical records. Discharge Plan Discharge Clinical Impression: Sinusitis Qualifiers: Sinusitis location: ethmoidal Chronicity: acute Recurrence: not specified as recurrent Qualified Code(s): J01.20 - Acute ethmoidal sinusitis, unspecified Patient Disposition: Home, Self-Care Condition: Stable Instructions: Antibiotic Form, Sinusitis (ED) Additional Instructions: Take all medications as prescribed. Follow-up with primary care provider. Emergency department for any new or worsening symptoms. Blood pressure is elevated today at 144/88. Normal blood pressure is 120/80. Please discuss this with your primary care provider Patient Language: Czech Prescriptions: New amoxicillin-pot clavulanate 875-125 mg tablet 1 tablet PO Q12H Qty: 14 0RF tobramycin 0.3 % drops 1 drp EACH EYE Q4H 7 Days Qty: 5 0RF No Action Fish Oil Capsule 1 cap PO DAILY cholecalciferol (vitamin D3) [Vitamin D3] 50 mcg (2,000 unit) Capsule 150 mcg PO DAILY One Daily Women's 1 cap PO DAILY (DME) cpap See Rx Instructions .Route .MEDSUPPLY Qty: 1 1RF Rx Instructions: Resmed AirSense 11 AutoPAP 5-15 cm H2O, CPAP mask/filters/tubing and humidifier chamber. fluoxetine 10 mg capsule 20 mg PO DAILY Qty: 180 1RF Rx Instructions: DUE FOR APPOINTMENT IN JULY phentermine 37.5 mg tablet 37.5 mg PO DAILY Qty: 30 5RF Rx Instructions: must administer 30 minutes before or 1-2 hours after breakfast levothyroxine 50 mcg tablet 50 mcg PO DAILY Qty: 90 1RF Rx Instructions: TAKE 1 TABLET DAILY Zepbound 2.5 mg/0.5 mL pen injector 2.5 mg subcut WEEKLY 28 Days Qty: 2 6RF sucralfate 1 gram tablet 1 g PO BID PRN (Reason: gastric reflux) Qty: 20 0RF Rx Instructions: NEEDS APPOINTMENT FOR FURTHER REFILLS omeprazole 40 mg capsule,delayed release(DR/EC) 40 mg PO DAILY Qty: 90 1RF Follow-up/Referrals: Naty Stone MD [Primary Care Provider] - 2 Weeks Time of Disposition: 08:45
== END 2024-09-27 09:00 | disposition home or self-care (01) ==
PROVIDERS: Emergency Provider Nurse Practitioner Family; PCP Family Medicine
DX: J01.20 Acute ethmoidal sinusitis, unspecified (principal); Z87.891 Personal history of nicotine dependence
CPT/HCPCS: 99213; G0463

== ENCOUNTER 2025-01-09 08:07 | Emergency (ER) | payer OTHER, SELFPAY ==
[2025-01-09 08:15] VITALS: BP 163/93; PULSE 72; RESP 19; TEMP 36.6; O2SAT 97
--- NOTE | 2025-01-09 08:20 | ED.GENADULT ---
HPI - General Adult General Chief complaint: Unspecified Stated complaint: Nose Pain Time Seen by Provider: 01/09/25 08:22 Source: patient, RN notes reviewed and old records reviewed Mode of arrival: ambulatory Limitations: no limitations History of Present Illness HPI narrative: 59-year-old female presents to the [facility] with nose pain. Reports that approximately 8:00 p.m. last night was playing cards with family when she was hit in the nose. No bruising or swelling is noted. Reports that she applied ice has taken ibuprofen. Able to breathe through her nose. Denies any nose bleeds at the time. Tenderness to the lower aspect of the bridge of the nose Onset (ago): hour(s) (12) Treatments prior to arrival: NSAID and cold therapy Related Data Home Medications ?Medication ?Instructions ?Recorded ?Confirmed ?Last Taken ?Type One Daily Women's 1 cap PO DAILY 09/29/23 08/30/24 10/15/23 History cholecalciferol (vitamin D3) 50 150 mcg PO DAILY 09/29/23 08/30/24 10/15/23 History mcg (2,000 unit) capsule (Vitamin D3) omega-3 fatty acids 1 cap PO DAILY 09/29/23 08/30/24 10/15/23 History Allergies Allergy/AdvReac Type Severity Reaction Status Date / Time bupropion Allergy Intermediate Rash Verified 01/09/25 08:23 Tetanus Vaccines and Toxoid Allergy Intermediate local Verified 01/09/25 08:23 reaction escitalopram (From Lexapro) AdvReac Intermediate Other Verified 01/09/25 08:23 Review of Systems Review of Systems: All systems reviewed & are unremarkable except as noted in HPI and below Constitutional: Constitutional: Reports no additional constitutional complaints ENT: Reports as per HPI, Denies epistaxis and Reports nasal trauma Cardiovascular: Cardiovascular: Reports no additional cardiovascular complaints, Denies chest pain and Denies dyspnea Respiratory: Respiratory: Reports no additional respiratory complaints, Denies chest congestion, Denies cough and Denies dyspnea Musculoskeletal: Musculoskeletal: Reports no additional musculoskeletal complaints Integumentary/Breasts: Skin/Breast: Reports system reviewed and no additional complaints, except as docu PMFSH Past Medical History Medical History Gastritis Hyperplastic colon polyp Esophageal ring Lactose intolerance Dysphagia Abnormal findings on esophagogastroduodenoscopy (EGD) 02.28.19: esophageal web, reflux esophagitis,dilated Low back pain radiating to lower extremity Chronic pain of right knee Right knee DJD Loss of libido History of torn meniscus of left knee Major depressive disorder, recurrent episode, mild with anxious 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 Primary osteoarthritis, unspecified hand History of deviated nasal septum Surgical History Surgical History Hx of knee surgery Hx of cholecystectomy History of endometrial ablation Family History Family History Mother Depression Family history of obesity Family history of kidney disease Father Hypertension Acute myocardial infarction Family history of glaucoma Family history of elevated blood lipids Family history of cardiovascular disease Grandparent Diabetes mellitus Family history of obesity Family history of schizophrenia Depression Family history of polycystic kidney disease Social History Social History Smoking packs per day: 1 Smoking cigarettes per day: 20.0 Years smoked: 18 Smoking pack-years: 18.00 Smoking status: Former smoker Tobacco type: cigarettes Smoking end date: 02/08/07 Alcohol intake: current Drinks per week: 4 Alcohol use details: occasionally Substance use: current Substance use type: does not use Other substance usage details: gummies Last use: months ago Do You Feel Safe in your Home?: Yes Lack of Transportation: No Lack of Food: Never True Current Housing: I Have Housing Concerned About Future Housing: No Difficulty Paying Gas/Electric Bills: No Difficulty Paying for Meds: No Currently Unemployed: No Education: Associate Degree Difficulty w/ Childcare or Family Care: No Living arrangements: with family Spiritual care concerns: No Comments At the time of my signature, I reviewed and agree with the nursing past medical, surgical, social, and family history. There is no relevant family history pertinent to the patient complaint. Exam Const: General: cooperative, healthy appearing, comfortable, no acute distress, well developed, alert and well nourished Nutritional Appearance: well nourished Orientation/consciousness: patient oriented x3 Limitations: no limitations HENMT: Head: normal to inspection Ears: hearing grossly normal bilaterally, external ears normal, TM's normal bilaterally, TM normal on the left, EAC's normal and mastoids normal Nose image:  1. Tender to palpation without erythema, ecchymosis or swelling. Face and sinus: no abrasions, no crepitus, no ecchymosis, no erythema, no lacerations and Facial tenderness on exam of face and sinuses bilaterally (Lower aspect of nose) Mouth: Yes Normal oral and palatal mucosa present, Yes lip normal, Yes tongue normal and Yes moist mucous membranes Throat: posterior oropharynx normal, uvula midline and no uvular edema Other: Lower aspect of nose tender, nose without erythema, ecchymosis or swelling. No orbital tenderness Eyes: General: appearance normal, both eyes and all related structures Visual Prado: normal visual prado by confrontation Alignment and Position: alignment normal Eyelids: eyelids normal Neck: Neck: normal visual inspection, full ROM, no lymphadenopathy and no meningeal signs Chest: Chest palpation & inspection: normal inspection of the chest Resp: Effort & Inspection: normal respiratory effort and able to speak in complete sentences Cardio: Rate: regular rate Skin: General skin exam: normal color and no rashes or lesions noted Neuro: General: patient oriented x3, gait normal, moves all extremities and no meningeal signs Cognition (Neuro): normal cognition Speech: normal speech Gait exam (Neuro): Normal gait present Extrem: General: normal to inspection, full ROM, capillary refill normal and normal gait Psych: Appearance: grossly normal and well kempt Mental Status: mental status grossly normal Speech and movement: Normal speech and movement present and Clear speech present Affect: normal affect Attitude: cooperative Course Course Level of Care: Express Care Visit Vital Signs Vital signs: Vital Signs Temperature 98 F 01/09/25 08:15 Pulse Rate 72 01/09/25 08:15 Respiratory Rate 19 01/09/25 08:15 Blood Pressure 163/93 H 01/09/25 08:15 Pulse Oximetry 97 01/09/25 08:15 Oxygen Delivery Room Air 01/09/25 08:15 Temperature 98 F 01/09/25 08:15 Pulse Rate 72 01/09/25 08:15 Respiratory Rate 19 01/09/25 08:15 Blood Pressure 163/93 H 01/09/25 08:15 Pulse Oximetry 97 01/09/25 08:15 Oxygen Delivery Room Air 01/09/25 08:15 Reviewed Medical Decision Making MDM Narrative Medical decision making narrative: Patient sitting in exam room. Nontoxic, vitals except for blood pressure are normal. Blood pressure mildly elevated. Patient presents with nose pain after getting hit in the nose last night. No swelling noted. No erythema or ecchymosis noted. No bleeding noted. Patient able to breathe out of both nostrils without difficulty. No orbital tenderness Discussed doing an x-ray and being nasal bones and wear the tenderness is x-rays very limited, explained this to the patient. Discuss if she did have a fracture that treatment would not change she would continue icing it, Motrin, Tylenol. Patient opted not to do x-ray at this time, would prefer to follow-up with ENT. Patient appropriate for outpatient treatment with close follow-up Discharge instructions reviewed with patient, as well as provided in writing per nursing staff. The instructions also include specific and strict return/GO TO THE ER as well as f/u information. All questions have been answered, and the patient deny any further questions with discharge and discharge plan. Some parts of this dictation were generated by voice recognition software and may contain typographical and/or grammatical inaccuracies. Differential Diagnosis Differential Diagnosis: Nasal contusion, nasal fracture Medical Records Medical records reviewed: Yes I reviewed the external patient's medical records. Vital Signs Vital Signs: Vital Signs Temperature 98 F 01/09/25 08:15 Pulse Rate 72 01/09/25 08:15 Respiratory Rate 19 01/09/25 08:15 Blood Pressure 163/93 H 01/09/25 08:15 Pulse Oximetry 97 01/09/25 08:15 Oxygen Delivery Room Air 01/09/25 08:15 Temperature 98 F 01/09/25 08:15 Pulse Rate 72 01/09/25 08:15 Respiratory Rate 19 01/09/25 08:15 Blood Pressure 163/93 H 01/09/25 08:15 Pulse Oximetry 97 01/09/25 08:15 Oxygen Delivery Room Air 01/09/25 08:15 Reviewed Lab Data Lab results reviewed: Yes I reviewed the patient's lab results. Labs: Reviewed Critical Care Time Critical Care Time Critical Care Time: No Discharge Plan Discharge Clinical Impression: Nasal trauma Qualifiers: Encounter type: initial encounter Qualified Code(s): S09.92XA - Unspecified injury of nose, initial encounter Patient Disposition: Home Condition: Stable Instructions: Antibiotic Form, Contusion in Adults (ED) Additional Instructions: Take Motrin alternating with Tylenol as needed for pain. Apply ice every 2-3 hours for 15-20 minutes while awake. Today your blood pressure was 163/93. Please follow-up with your primary care provider within the next 2 weeks to have this rechecked. Follow-up with ENT as needed Patient Language: Citizen Of [place] Prescriptions: No Action tobramycin 0.3 % drops 1 drp EACH EYE Q4H 7 Days Qty: 5 0RF Fish Oil Capsule 1 cap PO DAILY cholecalciferol (vitamin D3) [Vitamin D3] 50 mcg (2,000 unit) Capsule 150 mcg PO DAILY One Daily Women's 1 cap PO DAILY (DME) cpap See Rx Instructions .Route .MEDSUPPLY Qty: 1 1RF Rx Instructions: Resmed AirSense 11 AutoPAP 5-15 cm H2O, CPAP mask/filters/tubing and humidifier chamber. phentermine 37.5 mg tablet 37.5 mg PO DAILY Qty: 30 5RF Rx Instructions: must administer 30 minutes before or 1-2 hours after breakfast levothyroxine 50 mcg tablet 50 mcg PO DAILY Qty: 90 1RF Rx Instructions: TAKE 1 TABLET DAILY Zepbound 2.5 mg/0.5 mL pen injector 2.5 mg subcut WEEKLY 28 Days Qty: 2 6RF sucralfate 1 gram tablet 1 g PO BID PRN (Reason: gastric reflux) Qty: 20 0RF Rx Instructions: NEEDS APPOINTMENT FOR FURTHER REFILLS omeprazole 40 mg capsule,delayed release(DR/EC) 40 mg PO DAILY Qty: 90 1RF tirzepatide 5 mg/0.5 mL pen injector 5 mg subcut WEEKLY Qty: 2 5RF estradiol 0.0375 mg/24 hr patch weekly 1 patch transdermal WEEKLY Qty: 12 3RF progesterone micronized 100 mg capsule 100 mg PO QAM 90 Days Qty: 90 3RF fluoxetine 10 mg capsule See Rx Instructions .ROUTE .COMPLEX Qty: 90 1RF Dose Instruction: TAKE 2 CAPSULES DAILY (DUE FOR APPOINTMENT IN JULY) Rx Instructions: TAKE 2 CAPSULES DAILY Follow-up/Referrals: Zachary Cortes MD [Physician] - Naty Stone MD [Primary Care Provider] - 2 Weeks (express care follow up Nose trauma, Blood pressure check. 163/93) Stand Alone Forms: Work/School Release IP Time of Disposition: 08:49
== END 2025-01-09 08:53 | disposition home or self-care (01) ==
PROVIDERS: Emergency Provider Nurse Practitioner; PCP Family Medicine
DX: S09.92XA Unspecified injury of nose, initial encounter (principal); Z87.891 Personal history of nicotine dependence; W22.8XXA Striking against or struck by other objects, initial encounter
CPT/HCPCS: 99212; G0463

== ENCOUNTER 2025-03-13 15:53 | Outpatient (CLI) | payer OTHER, SELFPAY ==
--- NOTE | ~2025-03-13 | MM_ITS ---
EXAMINATION: MM screening ronaldo BI w yanique HISTORY: Screening TECHNIQUE: Craniocaudal and mediolateral oblique 3-D tomosynthesis images were obtained and synthetic 2-D images were generated. CAD analysis was submitted and interpreted. COMPARISON: Comparison to multiple prior studies sequentially, with oldest reviewed study dated 12/10. BREAST PARENCHYMAL COMPOSITION: Not dense: There are scattered areas of fibroglandular density. FINDINGS: There is no evidence of suspicious mass, calcification, or architectural distortion to sugg est malignancy in either breast. There has been no suspicious interval change. IMPRESSION: 1. No mammographic evidence of malignancy. 2. Recommend routine screening mammography in one year. BI-RADS Category 1: Negative Reviewed, dictated and finalized at location A.
== END 2025-03-13 15:54 | disposition home or self-care (01) ==
LOC: ANHIMG 16:06
PROVIDERS: PCP Family Medicine; Visit Provider Nurse Practitioner Family
DX: Z12.31 Encounter for screening mammogram for malignant neoplasm of breast (principal)
CPT/HCPCS: 77063; 77067

== ENCOUNTER 2025-04-14 10:12 | Outpatient (CLI) | payer OTHER, SELFPAY ==
--- NOTE | 2025-04-14 11:00 | NEURO_ITS ---
Impression: # Complains of numbness of hands. ? # Bilateral Carpal Tunnel Syndrome. ? # Right ulnar neuropathy across the elbow. ? # Normal needle/EMG exam. Nerve Conduction Studies ?Stim Site NR Peak (ms) P-T Amp (?V) Site1 Site2 Delta-P (ms) Dist (cm) Ki (m/s) Left Median Anti Sensory (2-3nd Digit) Wrist ? 5.2 6.6 Wrist 2-3nd Digit 5.2 14.0 27 Wrist ? 5.3 18.9 Wrist 2-3nd Digit 5.2 14.0 27 Right Median Anti Sensory (2-3nd Digit) Wrist ? 5.2 16.7 Wrist 2-3nd Digit 5.2 14.0 27 Wrist ? 5.3 30.4 Wrist 2-3nd Digit 5.2 14.0 27 Left Radial Anti Sensory (Base 1st Digit) Wrist ? 1.9 22.8 Wrist Base 1st Digit 1.9 0.0 Right Radial Anti Sensory (Base 1st Digit) Wrist ? 1.8 25.5 Wrist Base 1st Digit 1.8 0.0 Left Ulnar Anti Sensory (5th Digit) Wrist ? 2.5 52.6 Wrist 5th Digit 2.5 14.0 56 Right Ulnar Anti Sensory (5th Digit) Wrist ? 2.3 49.7 Wrist 5th Digit 2.3 14.0 61 ?Stim Site NR Onset (ms) O-P Amp (mV) Site1 Site2 Delta-0 (ms) Dist (cm) Ki (m/s) Left Median Motor (Abd Poll Brev) Wrist ? 4.8 0.9 Elbow Wrist 4.7 29.0 62 Elbow ? 9.5 0.4 Right Median Motor (Abd Poll Brev) Wrist ? 5.0 4.5 Elbow Wrist 4.9 29.0 59 Elbow ? 9.9 4.3 Left Ulnar Motor (Abd Dig Minimi) Wrist ? 2.2 7.3 A Elbow Wrist 5.2 31.0 60 A Elbow ? 7.4 5.1 Right Ulnar Motor (Abd Dig Minimi) Wrist ? 2.8 6.6 A Elbow Wrist 5.8 30.0 52 A Elbow ? 8.6 4.8 B Elbow Wrist 3.9 21.0 54 B Elbow ? 6.7 5.3 Electromyography ?Side Muscle Nerve Root Ins Act Fibs Amp Dur Recrt Comment Right 1stDorInt Ulnar C8-T1 Nml Nml Nml Nml Nml Right Ext Indicis Radial (Post Int) C7-8 Nml Nml Nml Nml Nml Right Ext Digitorum Radial (Post Int) C7-8 Nml Nml Nml Nml Nml Right BrachioRad Radial C5-6 Nml Nml Nml Nml Nml Right PronatorTeres Median C6-7 Nml Nml Nml Nml Nml Right Abd Poll Brev Median C8-T1 Nml Nml Nml Nml Nml Right ABD Dig Min Ulnar C8-T1 Nml Nml Nml Nml Nml Right FlexPolLong Median (Ant Int) C7-8 Nml Nml Nml Nml Nml Right Abd Poll Long Radial (Post Int) C7-8 Nml Nml Nml Nml Nml Left 1stDorInt Ulnar C8-T1 Nml Nml Nml Nml Nml Left Ext Indicis Radial (Post Int) C7-8 Nml Nml Nml Nml Nml Left Ext Digitorum Radial (Post Int) C7-8 Nml Nml Nml Nml Nml Left BrachioRad Radial C5-6 Nml Nml Nml Nml Nml Left PronatorTeres Median C6-7 Nml Nml Nml Nml Nml Left Abd Poll Brev Median C8-T1 Nml Nml Nml Nml Nml Left ABD Dig Min Ulnar C8-T1 Nml Nml Nml Nml Nml Left FlexPolLong Median (Ant Int) C7-8 Nml Nml Nml Nml Nml Left Abd Poll Long Radial (Post Int) C7-8 Nml Nml Nml Nml Nml
== END 2025-04-14 10:13 | disposition home or self-care (01) ==
PROVIDERS: PCP Family Medicine; Visit Provider Plastic Surgery
DX: G56.03 Carpal tunnel syndrome, bilateral upper limbs (principal)
CPT/HCPCS: 95886; 95911